=== PATIENT | female | born 1950 | race Two or more races ===

== ENCOUNTER 2024-05-07 07:01 | Emergency (ER) | payer MEDICARE, SELFPAY ==
--- NOTE | 2024-05-07 07:13 | EKG_ITS ---
[facility] Test Date: 2024-05-07 Pat Name: POOJA Rodgerspartment: Room: - Gender: Female Scale Expert: : 1950 Requested By: Yoni Quesada Order Number: [id number] Reading MD: Yoni Quesada Measurements Intervals [place] Rate: 58 P: 53 GA: 156 QRS: -4 QRSD: 83 T: 11 QT: 414 QTc: 409 Interpretive Statements SINUS BRADYCARDIA No previous ECG available for comparison /[email or web address]/[id number]
--- NOTE | 2024-05-07 07:13 | XR_ITS ---
Examination: Shoulder,left, 3 views Technique: Shoulder AP internal rotation, AP external rotation, Y view shoulder, 3 views Exam date and time :May 07, 2024 0744 hours INDICATIONS: Left shoulder pain today. FINDINGS: No shoulder fracture or dislocation Mild narrowing glenohumeral joint No calcific tendinitis IMPRESSION: Early osteoarthritis glenohumeral joint
--- NOTE | 2024-05-07 07:13 | XR_ITS ---
Examination: PA chest single view TECHNIQUE: Upright PA chest single view Exam date and time: May 07, 2024 at 0743 hours INDICATIONS: Shortness breath chest pain today. FINDINGS: No significant cardiac enlargement Minor subsegmental atelectasis left base No lobar pneumonia or pulmonary edema IMPRESSION: No lobar pneumonia or pulmonary edema
[2024-05-07 07:17] VITALS: BP 154/82; PULSE 65; RESP 18; TEMP 36.9; O2SAT 98; BMI 35.9
[2024-05-07] MEDS: IBUPROFEN TAB 400 MG TABLET PO (07:19)
[2024-05-07] MEDS: ACETAMINOPHEN w/COD 300-30 TABLET 2 TAB PO (07:19)
--- NOTE | 2024-05-07 07:42 | EDNOTE_ITS ---
ED Chest Pain RME/HPI General Chief Complaint: Chest Pain Stated Complaint: CHEST PAIN Time Seen by Provider: 05/07/24 07:06 Arrival date/time: 05/07/24 07:01 RME / HPI RME / HPI narrative: This section includes all my notes and documentations, including HPI, PE, and ED course. Yoni Guan MD HPI: 73-year-old female here with several days of chest pain. Also feels the pain in the left shoulder. Worse with certain movement, especially range of motion of the left shoulder. No cough. No fever. No shortness of breath. No other complaints. ROS: All negative except as documented in HPI. Physical Exam: General: Alert and oriented. No acute distress when remaining still. Eyes: Conjunctivae and lids clear. ENT: No nasal congestion. Neck: Supple. Heart: RRR. Lungs: No respiratory distress. Good air movement. No rhonchi, wheezing, rales. Chest: Palpation of the anterior chest left of the sternum and range of motion of the left shoulder reproduces her pain. Abdomen: Soft and nontender. Back: No CVA tenderness. Skin: Warm and dry. Neuro: Alert and oriented X 3. I reviewed all diagnostic test results. My interpretation of the EKG is sinus rhythm with no acute ST?T changes. My interpretation of the chest x-ray is no acute findings, official radiology report is pending. My interpretation of the left shoulder x-rays is no acute fracture. Blood tests and urine tests unremarkable. At this point, diagnoses include chest wall pain from left rotator cuff tear. Treatment here included ibuprofen and two Tylenol #3 and sling. She started to feel better. Recommended more outpatient care. Based on my best medical judgment, made decision no further evaluation or treatment indicated at this time. Patient understands and agrees to the discharge instructions customized and printed, see below. Discharge instructions from Dr. Guan: 1. After extensive evaluation, there is no life-threatening condition.? Such as heart attack or pneumothorax (collapsed lung). 2. Your pain is small tears of the left rotator cuff muscles (deep muscles are in the chest and back going into your shoulder). 3. Apply ice or heat if helpful. Ibuprofen 400 mg every 6-8 hours today and tomorrow to decrease inflammation then as needed. Tylenol with codeine for severe pain. 4. See a private doctor on 05/08/2024 for recheck and further care. For the left rotator cuff muscle tear, ask for more care not available here in the ER (such as MRI to assess the severity, some require surgery). To make sure there is no serious underlying heart condition, ask to help you get more tests for your heart that cannot be done here in the ER.? Such as Holter Monitor (cardiac monitoring at home from a day to even a month), heart stress test (on treadmill or with medication), echocardiogram (imaging of your heart structures), heart catherization (checking for blockages in your heart arteries), and a referral to see a Gis Software Developer.? 5. Seek immediate medical care with worsening or with any concerns.?? Yoni Guan MD Related Data Previous Rx's ?Medication ?Instructions ?Recorded acetaminophen 300 mg-codeine 30 mg 2 tab PO TID PRN pain #20 tabs 05/07/24 tablet Allergies Allergy/AdvReac Type Severity Reaction Status Date / Time No Known Allergies Allergy Verified 05/07/24 07:05 Review of Systems Review of Systems Systems Reviewed: All systems reviewed, normal except as documented Past Medical History Social History SMOKING STATUS: Never smoker ED Exam Narrative Physical exam: As noted in HPI Course Course Course Narrative: chest xray ordered to help determine etiology of chest pain. Quality Measures none Orders Category Date Time Status EKG (ED ONLY) *Do not use* NOW Care 05/07/24 07:13 Completed sling [Splint / Immobilizer] STAT Care 05/07/24 08:40 Active EKG (ED Only) Stat Exams 05/07/24 07:13 Draft XR chest 1V portable Stat Exams 05/07/24 07:13 Taken XR shoulder LT min 2V Stat Exams 05/07/24 07:13 Taken CBC Stat Lab 05/07/24 07:36 Completed CMP [Comprehensive Metabolic Panel] Stat Lab 05/07/24 07:36 Completed Magnesium Stat Lab 05/07/24 07:36 Completed TSH [Thyroid Stimulating Hormone] Stat Lab 05/07/24 07:36 Completed Troponin I Stat Lab 05/07/24 07:36 Completed UA, C/S IF [Urinalysis, C/S if Indicated] Stat Lab 05/07/24 07:40 Completed ACETAMINOPHEN w/COD 300-30 [Tylenol w/Cod #3] Med 05/07/24 07:14 Discontinued 2 tab PO X1 ONE Ibuprofen Tab [Motrin Tab] Med 05/07/24 07:14 Discontinued 400 mg PO X1 ONE Vital Signs Vital signs: Vital Signs Temperature 98.5 F 05/07/24 07:17 Pulse Rate 65 05/07/24 07:17 Respiratory Rate 18 05/07/24 07:17 Blood Pressure 154/82 H 05/07/24 07:17 Pulse Oximetry (%) 98 05/07/24 07:17 Oxygen Delivery Method Room Air 05/07/24 07:17 Pulse ox is 98% on room air which is adequate. Chest Pain Patient data External records reviewed:: [facility] previous records (Per EMR review, patient has no previous ED visits ) Clinical information provided by:: patient and family Social determinants that could affect healthcare access:: none Patient has the following chronic illnesses:: Hypertension How is presenting disease/condition affected by chronic disease/condition?: uneffected by Evaluation data The following diagnostics were reviewed and interpreted by me:: lab results, radiology exam(s) and EKG tracing(s) (My interpretation of the EKG is: Sinus rhythm (98 bpm) with nonspecific ST-T changes. Yoni Guan MD) Lab and/or radiology exams considered but not ordered:: None Interpretation Summary: Chest wall pain from rotator cuff muscle tear Medications / Prescriptions Medications or Prescriptions considered but not ordered:: None Medication administrations:: Medication Administration History Discontinued Medications Acetaminophen/Codeine Phosphate (Acetaminophen W/Cod 300-30 Tablet) 2 tab PO X1 ONE Stop: 05/07/24 07:15 Last Admin: 05/07/24 07:19 Dose: 2 tab Documented By: DO Ibuprofen (Ibuprofen Tab 400 Mg Tablet) 400 mg PO X1 ONE Stop: 05/07/24 07:15 Last Admin: 05/07/24 07:19 Dose: 400 mg Documented By: DO Patient was given Tylenol and Ibuprofen Consultations Consultation(s) initiated? (list below): No Diagnosis Chest Pain Differential Diagnosis: pneumothorax, stable angina, unstable angina pectoris, atypical chest pain, st elevation myocardial infarction, costochondritis, chest pain, biliary colic and other (Rotator cuff tear) Most likely diagnosis given after review of the tests above:: Chest pain from rotator cuff tear Admission Indicated Admission indicated?: not indicated Explain why admission is indicated or not indicated:: Does not meet admission criteria Admission Request Was there a request for admission?: No Disposition Plan Disposition Plan: Discharge Discharge Attestation Discharge Attestation: The patient and all family members were given an opportunity to ask questions and understood the discharge instructions. Discharge instructions specifically effects, indications for sooner follow up or return to the emergency department, and the expected course of current diagnosis. Patient condition: Stable Discharge Plan Plan Patient Disposition: HOME (Self Care) Prescriptions/Referrals Prescriptions/Med Rec: New acetaminophen-codeine 300-30 mg tablet 2 tab PO TID MDD 6 PRN (Reason: pain) Qty: 20 0RF Referrals: Miriam Zavaleta DATA PROCESSING SPECIALIST [Primary Care Provider] - In 1 week Problem List Clinical Impression: Chest wall pain Patient/Caregiver Discharge Instructions Discharge Activity: activity as tolerated Education Materials: ED Rotator Cuff Tear Additional Instructions: Discharge instructions from Dr. Guan: 1. After extensive evaluation, there is no life-threatening condition.? Such as heart attack or pneumothorax (collapsed lung). 2. Your pain is small tears of the left rotator cuff muscles (deep muscles are in the chest and back going into your shoulder). 3. Apply ice or heat if helpful. Ibuprofen 400 mg every 6-8 hours today and tomorrow to decrease inflammation then as needed. Tylenol with codeine for severe pain. 4. See a private doctor on 05/08/2024 for recheck and further care. For the left rotator cuff muscle tear, ask for more care not available here in the ER (such as MRI to assess the severity, some require surgery). To make sure there is no serious underlying heart condition, ask to help you get more tests for your heart that cannot be done here in the ER.? Such as Holter Monitor (cardiac monitoring at home from a day to even a month), heart stress test (on treadmill or with medication), echocardiogram (imaging of your heart structures), heart catherization (checking for blockages in your heart arteries), and a referral to see a Gis Software Developer.? 5. Seek immediate medical care with worsening or with any concerns.?? Print Language: Yi Stand Alone Forms: Desiree Award Info., Patient Portal Info Letter
[2024-05-07 08:00] LABS: Collection Type, Urine Clean Catch
[2024-05-07 08:14] LABS: Basophils # (Auto) 0.1 Thou/mm3 (0.0-0.2); Basophils % (Auto) 1 % (0-2.5); Eosinophils # (Auto) 0.1 Thou/mm3 (0.0-0.5); Eosinophils % (Auto) 2 % (0-10); Hematocrit 43.4 % (36.0-46.0); Hemoglobin 15.2 g/dL (12.0-16.0); Immature Granulocytes % (Auto) 0 % (0-0); Immature Granulocytes Auto 0.02 Thou/mm3 (0.00-0.00); Lymphocytes # (Auto) 3.1 Thou/mm3 (1.0-4.8); Lymphocytes % (Auto) 42 % (10-50); Mean Corpuscular Hemoglobin 30.7 pg (25.0-35.0); Mean Corpuscular Volume 88 fL (80-100); Monocytes # (Auto) 0.7 Thou/mm3 (0.0-0.8); Monocytes % (Auto) 9 % (0-12); Neutrophils # (Auto) 3.5 Thou/mm3 (1.8-7.7); Neutrophils % (Auto) 47 % (37-80); Nucleated Red Blood Cell % 0 /100 WBC (0); Platelet Count 243 Thou/mm3 (140-440); RDW Standard Deviation 41.1 fL (36.4-46.3); Red Blood Count 4.95 Miln/mm3 (4.00-5.20); White Blood Count 7.5 Thou/mm3 (3.6-11.0)
[2024-05-07 08:25] LABS: Alanine Aminotransferase 16 U/L (10-49); Albumin, Serum 4.7 gm/dL (3.4-4.8); Albumin/Globulin Ratio 1.6 (1.2-2.2); Alkaline Phosphatase 65 U/L (46-116); Anion Gap 10 (7-16); Aspartate Amino Transferase 14 U/L (0-34); BUN/Creatinine Ratio 31 Ratio (12-20); Bilirubin,Total 0.7 mg/dL (0.3-1.2); Blood Urea Nitrogen 28 mg/dL (9-23); Calcium 10.1 mg/dL (8.3-10.6); Calcium (Corrected) 10.1 mg/dL (8.5-10.1); Carbon Dioxide 24.5 mMol/L (20.0-31.0); Chloride 104 mMol/L (98-107); Creatinine (Component) 0.9 mg/dL (0.6-1.3); Estimated Creatinine Clearance 55.5 mL/min (>60); Globulin 2.9 gm/dL (2.3-3.5); Glucose 104 mg/dL (74-106); Osmolality,Calculated 281 (275-295); Potassium 4.4 mMol/L (3.4-5.1); Sodium 138 mMol/L (136-145); Thyroid Stimulating Hormone 5.17 uIU/mL (0.55-4.78); Total Protein 7.6 gm/dL (5.7-8.2); Troponin I < 0.002 ng/mL (0.0-0.045); eGFR > 60 See Note
[2024-05-07 08:48] LABS: Bilirubin,Urine Negative (Negative); Blood,Urine Negative (Negative); Clarity,Urine Clear (Clear/Hazy); Color,Urine Colorless (Lt Yel-Yel); Culture Indicated,Urine Not Indicated; Glucose, Urine Negative (Negative); Ketones,Urine Negative (Negative); Leukocyte Esterase,Urine Negative (Negative); Nitrite,Urine Negative (Negative); PH,Urine 6.5 (5.0-7.0); Protein,Urine Negative (Neg - Trace); RBC,Urine 1 /hpf (0-3); Specific Gravity,Urine 1.012 (1.001-1.035); Squamous Epithelial Cell,Urine 2 /hpf (0-5); Urobilinogen,Urine Negative mg/dL (0.0-1.0); WBC,Urine 1 /hpf (0-5)
[2024-05-07 10:27] VITALS: BP 139/85; PULSE 58; RESP 18; TEMP 36.8; O2SAT 97
[2024-05-07 10:45] VITALS: BP 139/58; PULSE 58; RESP 18; O2SAT 97
== END 2024-05-07 10:45 | disposition home or self-care (01) ==
PROVIDERS: Emergency Provider Emergency Medicine; PCP Registered Nurse Pediatrics
DX: R07.89 Other chest pain (principal); M25.512 Pain in left shoulder; R00.1 Bradycardia, unspecified; I10 Essential (primary) hypertension
CPT/HCPCS: 36415; 71045; 73030; 80053; 81001; 83735; 84443; 84484; 85025; 93005; 99283; A4565; A9270

== ENCOUNTER → 2024-06-17 | Outpatient (CLI) | payer MEDICARE, SELFPAY ==
--- NOTE | 2024-06-17 09:30 | XR_ITS ---
MRI shoulder, left, without contrast. Date and time: June 17, 2024 1101 hours INDICATIONS: Left shoulder pain beginning 2 months ago Technique: Multiple axial, sagittal and coronal sections of the shoulder have been obtained. Siemens high-resolution 1.5 Rosalva MRI scanner is utilized. Axial fat-suppressed sections, TR 2350, TE 18 T2-weighted coronal fat-saturated images, TR 3500, TE 7100 T1-weighted coronal images, TR 500, TE 15 T2-weighted sagittal fat-saturated images, TR 3500, TE 57 T1-weighted sagittal sections, TR 504, TE 13. Findings: Supraspinatus tendon insertion is abnormal, 4 mm at least partial-thickness articular surface tear. Infraspinatus tendon insertion is intact. Subscapularis insertion is intact. Subscapularis bursa is not seen. Long head of the biceps is in the bicipital groove. No definite tear of the biceps superior labral anchor is seen. Retraction of the musculotendinous junction of the rotator cuff is not seen . Tendinosis pattern is moderate. Distance between the acromium and humeral head is 6 mm Atrophy of the supraspinatus muscle is moderate. Atrophy of the infraspinatus muscle is mild. Sagittal sections demonstrate a horizontal acromion. Acromioclavicular joint demonstrates mild osteoarthritis . Osacromiale is not identified. Labral margins intact. Bony glenoid fossa on the sagittal sections does not demonstrate osseous defect. Occult fracture or area of avascular necrosis is not seen. Acromioclavicular joint separation is not visible. Defect in the posterolateral margin of the humeral head is not seen Impression: 4 mm at least partial-thickness articular surface tear supraspinatous Recommend this patient return for MR arthrography followed by post intra-articular contrast images of the shoulder to exclude full-thickness tear of the rotator cuff
== END | disposition home or self-care (01) ==
PROVIDERS: PCP Physician Assistant; Referring Provider Physician Assistant; Visit Provider Physician Assistant
DX: M75.102 Unspecified rotator cuff tear or rupture of left shoulder, not specified as traumatic (principal)
CPT/HCPCS: 73221